=== PATIENT | male | born 1980 | race Caucasian/White ===

== ENCOUNTER → 2021-09-21 | Outpatient (REF) | LOC: M LABSMTC 09:23 | PROVIDERS: ATTEND Pediatrics | DX: Z20.822 Contact with and (suspected) exposure to COVID-19 (principal) ==

== ENCOUNTER 2023-12-27 09:05 | Day surgery (SDC) | payer OTHER ==
[~2023-12-27] VITALS: Ht 185.4 cm; Wt 78.9 kg
[~2023-12-27 09:05] MED LIST: LIDOCAINE 2% 100MG/5ML SDV (FOR ANES.) As Ordered ONE; propofoL 200 MG/20 ML VIAL As Ordered ONE
[2023-12-27 10:16] VITALS: TEMP 97.1
[2023-12-27 10:48] VITALS: BP 106/55; O2SAT 96
[2024-01-09] MEDS ORDERED: NS 1,000 ML IV ONE (06:00)
== END 2023-12-27 11:12 | disposition home or self-care (01) ==
LOC: M OPP 09:05
PROVIDERS: ATTEND Internal Medicine Gastroenterology
DX: Z12.11 Encounter for screening for malignant neoplasm of colon (principal); Z80.0 Family history of malignant neoplasm of digestive organs; K63.5 Polyp of colon; Q43.8 Other specified congenital malformations of intestine; K29.80 Duodenitis without bleeding; K21.00 Gastro-esophageal reflux disease with esophagitis, without bleeding; Z13.810 Encounter for screening for upper gastrointestinal disorder; Z85.01 Personal history of malignant neoplasm of esophagus; Z85.00 Personal history of malignant neoplasm of unspecified digestive organ